=== PATIENT | male | born 1965 | race American Indian/Alaskan Native ===

== ENCOUNTER 2018-05-09 03:33 | Emergency (ER) | payer SELFPAY ==
[2018-05-09 05:09] VITALS: BP 139/91
--- NOTE | 2018-05-09 05:32 | XRay Report ---
FINAL REPORT EXAM: XR ANKLE 2V RT HISTORY: right ankle pain COMPARISONS: None. FINDINGS: AP and lateral views right ankle Intact ankle mortise. Mild midfoot greater than tibiotalar osteoarthrosis. No fracture or gross malalignment. Mild right ankle periarticular soft tissue swelling. Small Achilles insertional enthesophyte. IMPRESSION: Mild right ankle periarticular soft tissue swelling is suggested without fracture or gross deformity. 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
== END 2018-05-09 07:31 | disposition left against medical advice (07) ==
LOC: ED 03:33
DX: M79.671 Pain in right foot (principal); Z53.21 Procedure and treatment not carried out due to patient leaving prior to being seen by health care provider